=== PATIENT | female | born 1945 | race Caucasian/White ===

== ENCOUNTER 2021-04-28 17:50 | Emergency (ER) | payer BC ==
[2021-04-28 18:14] VITALS: BP 136/62; PULSE 76; TEMP 98; BMI 23.3
== END 2021-04-28 19:53 | disposition home or self-care (01) ==
LOC: JERFT 17:50
DX: S71.152A Open bite, left thigh, initial encounter (principal); W54.0XXA Bitten by dog, initial encounter
CPT/HCPCS: 99283-25

== ENCOUNTER 2021-05-22 04:41 | Day surgery (SDC) | payer BC ==
[2021-05-20 16:46] VITALS: BMI 23.6
[~2021-05-22 04:41] MED LIST: ACETAMINOPHEN 325 MG TABLET (FP) PO PRN; CYCLOPENTOLATE HCL 1% OPHTH SOLN 2 ML BOTTLE OP SCH; KETOROLAC TROMETHAMINE 0.5% EYE DROP 1 DROP DROPS OP SCH; OFLOXACIN 0.3% OPHTHALMIC SOLUTION 5 ML BOTTLE OP SCH; PHENYLEPHRINE 2.5% OPHTH SOLN 15 ML BOTTLE OP SCH; TROPICAMIDE 1% OPHTH SOLN 15 ML BOTTLE OP SCH
[2021-05-22] MEDS ORDERED: OFLOXACIN 0.3% OPHTHALMIC SOLUTION 5 ML BOTTLE ONE (06:08)
[2021-05-22] MEDS ORDERED: CYCLOPENTOLATE HCL 1% OPHTH SOLN 2 ML BOTTLE ONE (06:09)
[2021-05-22] MEDS ORDERED: TROPICAMIDE 1% OPHTH SOLN 15 ML BOTTLE ONE (06:09)
[2021-05-22] MEDS ORDERED: KETOROLAC TROMETHAMINE 0.5% EYE DROP 1 DROP DROPS ONE (06:09)
[2021-05-22] MEDS ORDERED: PHENYLEPHRINE 2.5% OPTHALMIC DROP BOTTLE ONE (06:09)
[2021-05-22] MEDS ORDERED: KETOROLAC TROMETHAMINE 0.5% EYE DROP 1 DROP DROPS OD ONE ×3 (06:15→07:05)
[2021-05-22] MEDS ORDERED: OFLOXACIN 0.3% OPHTHALMIC SOLUTION 5 ML BOTTLE OD ONE ×3 (06:15→07:05)
[2021-05-22] MEDS ORDERED: PHENYLEPHRINE 2.5% OPTHALMIC DROP BOTTLE OD ONE (06:15)
[2021-05-22] MEDS ORDERED: CYCLOPENTOLATE HCL 1% OPHTH SOLN 2 ML BOTTLE OD ONE ×3 (06:15→07:05)
[2021-05-22] MEDS ORDERED: TROPICAMIDE 1% OPHTH SOLN 15 ML BOTTLE OD ONE ×3 (06:15→07:05)
[2021-05-22] MEDS ORDERED: PHENYLEPHRINE 2.5% OPHTH SOLN 15 ML BOTTLE OD ONE ×2 (07:00→07:05)
[2021-05-22] MEDS ORDERED: MIDAZOLAM HCL 2 MG/2 ML SINGLE DOSE VIAL ONE (07:34)
[2021-05-22] MEDS ORDERED: SUCCINYLCHOLINE CHLORIDE 200 MG/10 ML SYRINGE ONE (07:34)
[2021-05-22] MEDS ORDERED: PROPOFOL 20 ML ONE ×2 (07:35)
[2021-05-22] MEDS ORDERED: EPINEPHrine/PF 1 MG/1 ML (1:1,000) AMPULE ONE (07:44)
[2021-05-22] MEDS ORDERED: LIDOCAINE HCL/PF 1% SDV 5ML VIAL ONE (07:44)
[2021-05-22] MEDS ORDERED: VANCOMYCIN 500 MG VIAL (RESTRICTED TO ID ONLY) ONE (07:44)
[2021-05-22] MEDS ORDERED: TETRACAINE 0.5% OPHTH SOLN 2 ML BOTTLE ONE (07:44)
[2021-05-22] MEDS ORDERED: POVIDONE-IODINE 5% OPHTHALMIC PREP 30 ML SOLUTION ONE (07:45)
[2021-05-22] MEDS ORDERED: WATER FOR INJ,STERILE 10 ML ONE (07:45)
[2021-05-22] MEDS ORDERED: TETRACAINE 0.5% OPHTH SOLN 2 ML BOTTLE TP ONE (08:22)
[2021-05-22] MEDS ORDERED: POVIDONE-IODINE 5% OPHTHALMIC PREP 30 ML SOLUTION OD ONE (08:23)
[2021-05-22] MEDS ORDERED: BSS (NA/CA/MG/K) BALANCED SALT SOLUTION OPHTH SOLN 15 ML BOTTLE OD ONE (08:32)
[2021-05-22] MEDS ORDERED: LIDOCAINE HCL 1% PRESERVATIVE FREE - 30ML VIAL IO ONE (08:33)
[2021-05-22] MEDS ORDERED: CHONDROITIN SU A/HYALUR SOD 1 KIT IO ONE (08:33)
[2021-05-22] MEDS ORDERED: EPINEPHrine/PF 1 MG/1 ML (1:1,000) AMPULE SQ ONE (08:39)
[2021-05-22 13:44] VITALS: BP 118/64; PULSE 70; TEMP 98.7
== END 2021-05-22 10:50 | disposition home or self-care (01) ==
LOC: JASU-SURG 04:41
PROVIDERS: ATTEND Ophthalmology
PROC: 08RK3JZ Replacement of Left Lens with Synthetic Substitute, Percutaneous Approach (ICD-10-PCS; principal; 2021-05-22 08:00)
DX: H26.9 Unspecified cataract (principal)

== ENCOUNTER 2022-02-10 04:32 | Day surgery (SDC) | payer BC ==
[2022-02-05 09:43] VITALS: BMI 23.1
[2022-02-10 08:43] VITALS: TEMP 97.9
[2022-02-10] MEDS ORDERED: ceFAZolin SODIUM 1 GM VIAL ONE (08:48)
[2022-02-10] MEDS ORDERED: CEFAZOLIN 1 GM in DEXTROSE 5%-WATER - 50 ML IVPB ONE (09:00)
[2022-02-10 10:06] VITALS: BP 139/54; PULSE 52
== END 2022-02-10 10:23 | disposition home or self-care (01) ==
LOC: JASU-ENDO 04:32
PROVIDERS: ATTEND Internal Medicine Gastroenterology
PROC: 0DJD8ZZ Inspection of Lower Intestinal Tract, Via Natural or Artificial Opening Endoscopic (ICD-10-PCS; principal; 2022-02-10 08:00)
DX: Z12.11 Encounter for screening for malignant neoplasm of colon (principal); K57.30 Diverticulosis of large intestine without perforation or abscess without bleeding; K59.89 Other specified functional intestinal disorders; K56.609 Unspecified intestinal obstruction, unspecified as to partial versus complete obstruction; Z80.0 Family history of malignant neoplasm of digestive organs

== ENCOUNTER 2022-09-18 13:45 | Emergency (ER) | payer BC, OTHER ==
[2022-09-18 13:56] VITALS: TEMP 98.4; BMI 22.9
[2022-09-18] MEDS ORDERED: LIDOCAINE 5% TOPICAL PATCH TP ONE (14:48)
[2022-09-18] MEDS ORDERED: LIDOCAINE 5% TOPICAL PATCH ONE (14:55)
[2022-09-18] MEDS ORDERED: ACETAMINOPHEN 325 MG TABLET (FP) PO ONE (14:58)
[2022-09-18] MEDS ORDERED: ACETAMINOPHEN 325 MG TABLET (FP) ONE (16:00)
[2022-09-18 16:23] VITALS: BP 159/68; PULSE 66; RESP 18
[2022-09-18] MEDS ORDERED: LIDOCAINE PATCH REMOVAL MC ONE (22:00)
== END 2022-09-18 16:26 | disposition home or self-care (01) ==
LOC: JER 13:45
DX: M54.2 Cervicalgia (principal); M25.552 Pain in left hip; W19.XXXA Unspecified fall, initial encounter
CPT/HCPCS: 70450-TC; 71045-TC-FY; 72125-TC; 72170-TC-FY; 99284-25

== ENCOUNTER 2024-01-20 04:34 | Day surgery (SDC) | payer BC ==
[2024-01-15 14:07] VITALS: BMI 22.2
[~2024-01-20 04:34] MED LIST changes: -CYCLOPENTOLATE HCL 1% OPHTH SOLN 2 ML BOTTLE OP SCH; -KETOROLAC TROMETHAMINE 0.5% EYE DROP 1 DROP DROPS OP SCH; -OFLOXACIN 0.3% OPHTHALMIC SOLUTION 5 ML BOTTLE OP SCH; -PHENYLEPHRINE 2.5% OPHTH SOLN 15 ML BOTTLE OP SCH; -TROPICAMIDE 1% OPHTH SOLN 15 ML BOTTLE OP SCH
[2024-01-20] MEDS ORDERED: PHENYLEPHRINE 2.5% OPTHALMIC DROP 2ML BOTTLE ONE (07:03)
[2024-01-20] MEDS ORDERED: CYCLOPENTOLATE HCL 1% OPHTH SOLN 2 ML BOTTLE ONE (07:03)
[2024-01-20] MEDS ORDERED: OFLOXACIN 0.3% OPHTHALMIC SOLUTION 5 ML BOTTLE ONE (07:03)
[2024-01-20] MEDS ORDERED: TROPICAMIDE 1% OPHTH SOLN 15 ML BOTTLE ONE (07:03)
[2024-01-20] MEDS ORDERED: KETOROLAC TROMETHAMINE 0.5% EYE DROP 1 DROP DROPS ONE (07:03)
[2024-01-20] MEDS: CYCLOPENTOLATE HCL 1% OPHTH SOLN 2 ML BOTTLE OP SCH (07:28)
[2024-01-20] MEDS ORDERED: PHENYLEPHRINE 2.5% OPHTH SOLN 15 ML BOTTLE OP SCH ×3 (07:30→13:00)
[2024-01-20] MEDS ORDERED: OFLOXACIN 0.3% OPHTHALMIC SOLUTION 5 ML BOTTLE OP SCH ×2 (07:30→13:00)
[2024-01-20] MEDS ORDERED: KETOROLAC TROMETHAMINE 0.5% EYE DROP 1 DROP DROPS OP SCH (07:30)
[2024-01-20] MEDS ORDERED: CYCLOPENTOLATE HCL 1% OPHTH SOLN 2 ML BOTTLE OP SCH (07:30)
[2024-01-20] MEDS: KETOROLAC TROMETHAMINE 0.5% EYE DROP 1 DROP DROPS OP SCH (07:30)
[2024-01-20] MEDS ORDERED: TROPICAMIDE 1% OPHTH SOLN 15 ML BOTTLE OP SCH ×2 (07:30→13:00)
[2024-01-20] MEDS ORDERED: POVIDONE-IODINE 5% OPHTHALMIC PREP 30 ML SOLUTION ONE (07:49)
[2024-01-20] MEDS ORDERED: LIDOCAINE HCL/PF 1% SDV 5ML VIAL ONE (07:49)
[2024-01-20] MEDS ORDERED: EPINEPHrine/PF 1 MG/1 ML (1:1,000) AMPULE ONE (07:49)
[2024-01-20] MEDS ORDERED: TRYPAN BLUE 0.5 ML DISP.SYRIN ONE (07:50)
[2024-01-20] MEDS ORDERED: TETRACAINE 0.5% OPHTH SOLN 2 ML BOTTLE ONE (08:06)
[2024-01-20] MEDS ORDERED: CHONDROITIN SU A/HYALUR SOD 1 KIT ONE (08:08)
[2024-01-20] MEDS ORDERED: ONDANSETRON 4 MG/2 ML VIAL ONE (08:38)
[2024-01-20] MEDS ORDERED: MIDAZOLAM HCL 2 MG/2 ML SINGLE DOSE VIAL ONE (08:39)
[2024-01-20] MEDS: TETRACAINE 0.5% OPHTH SOLN 2 ML BOTTLE OS ONE ×2 (08:58)
[2024-01-20] MEDS: POVIDONE-IODINE 5% OPHTHALMIC PREP 30 ML SOLUTION OS ONE ×2 (09:02)
[2024-01-20] MEDS: LIDOCAINE HCL 1% PRESERVATIVE FREE - 30ML VIAL IO ONE ×2 (09:06→09:11)
[2024-01-20] MEDS: BSS (NA/CA/MG/K) BALANCED SALT SOLUTION OPHTH SOLN 15 ML BOTTLE OS ONE (09:09)
[2024-01-20] MEDS: CHONDROITIN SU A/HYALUR SOD 1 KIT IO ONE ×2 (09:12)
[2024-01-20] MEDS: EPINEPHrine/PF 1 MG/1 ML (1:1,000) AMPULE IO ONE ×2 (09:19)
[2024-01-20 09:46] VITALS: BP 114/56; RESP 20; TEMP 97.3
[2024-01-20 11:20] VITALS: PULSE 57
== END 2024-01-20 10:45 | disposition home or self-care (01) ==
LOC: JASU-SURG 04:34
PROVIDERS: ATTEND Ophthalmology
PROC: 08RK3JZ Replacement of Left Lens with Synthetic Substitute, Percutaneous Approach (ICD-10-PCS; principal; 2024-01-20 09:00)
DX: H26.9 Unspecified cataract (principal)
CPT/HCPCS: V2632

== ENCOUNTER 2024-03-03 17:26 | Inpatient (IN) | payer BC ==
[2024-03-03 18:40] LABS: BASO % 0.5 % (0-2.0); EOS % 1.1 % (0-4.5); LYMPH % 15.9 % (8-40); MCH 29.3 pg (25.7-33.7); MCHC 33.5 g/dl (32.0-36.0); MEAN CELL VOLUME 87.3 fl (80-96); MONO % 7.8 % (3.8-10.2); NEUT % 74.7 % (42.8-82.8); PLATELET COUNT 246 10^3/uL (134-434); RBC 4.12 M/mm3 (3.60-5.2); RDW 14.7 % (11.6-15.6); WHITE BLOOD COUNT 11.7 K/mm3 (4.0-10.0)
[2024-03-03] MEDS ORDERED: morphine SULFATE 4 MG/ML VIAL ONE (18:46)
[2024-03-03] MEDS ORDERED: ONDANSETRON 4 MG/2 ML VIAL ONE (18:46)
[2024-03-03 18:47] LABS: INR 2.54 (0.83-1.09); PROTHROMBIN TIME (PATIENT) 27.9 SEC (9.7-13.0)
[2024-03-03 18:49] LABS: ACTIVATED PTT 40.4 SECONDS (25.2-36.5)
[2024-03-03] MEDS: morphine CARPU-JECT 4 MG/1 ML DISP.SYRIN IVPUSH ONE (18:53)
[2024-03-03] MEDS: ONDANSETRON 4 MG/2 ML VIAL IVPUSH ONE (18:53)
[2024-03-03 18:55] LABS: POTASSIUM 3.6 mmol/L (3.5-5.1)
[2024-03-03 18:56] LABS: CALCIUM 8.8 mg/dL (8.5-10.1)
[2024-03-03 18:57] LABS: ALBUMIN 3.3 g/dl (3.4-5.0); MAGNESIUM 1.9 mg/dL (1.8-2.4)
[2024-03-03 19:00] LABS: CREATININE 0.6 mg/dL (0.55-1.3)
[2024-03-03 19:02] LABS: BILIRUBIN,TOTAL 0.4 mg/dL (0.2-1)
[2024-03-03] MEDS: LACTATED RINGERS SOLUTION 1,000 ML/1,000 ML INFUS.BAG IV SCH (20:24)
[2024-03-03] MEDS ORDERED: MORPHINE SULFATE 2 MG/ML SYRINGE ONE (21:15)
[2024-03-03] MEDS: morphine CARPU-JECT 2 MG/1 ML DISP.SYRIN IVPUSH ONE (21:18)
[2024-03-04] MEDS: morphine SULFATE 4 MG/ML VIAL IVPUSH PRN (01:53)
[2024-03-04 08:32] LABS: BASO % 0.1 % (0-2.0); HEMATOCRIT 33.3 % (32.4-45.2); HEMOGLOBIN 11.2 GM/dL (10.7-15.3); MCH 29.2 pg (25.7-33.7); MCHC 33.7 g/dl (32.0-36.0); MEAN CELL VOLUME 86.6 fl (80-96); MEAN PLT VOLUME 8.4 fl (7.5-11.1); MONO % 13.5 % (3.8-10.2); NEUT % 76.4 % (42.8-82.8); PLATELET COUNT 234 10^3/uL (134-434); RBC 3.84 M/mm3 (3.60-5.2); RDW 15.2 % (11.6-15.6); WHITE BLOOD COUNT 11.7 K/mm3 (4.0-10.0)
[2024-03-04 08:49] LABS: POTASSIUM 4.3 mmol/L (3.5-5.1)
[2024-03-04 08:51] LABS: ALBUMIN 3.1 g/dl (3.4-5.0); BLOOD UREA NITROGEN 28.8 mg/dL (7-18); CALCIUM 8.8 mg/dL (8.5-10.1); MAGNESIUM 1.9 mg/dL (1.8-2.4)
[2024-03-04 08:54] LABS: CREATININE 0.6 mg/dL (0.55-1.3); PHOSPHOROUS 3.6 mg/dL (2.5-4.9)
[2024-03-04 08:56] LABS: BILIRUBIN,TOTAL 0.6 mg/dL (0.2-1); TOT PROT 7.4 g/dl (6.4-8.2)
[2024-03-04 09:00] LABS: N-TERMINAL BNP 6380.5 pg/ml (5-450)
[2024-03-04] MEDS: LISINOPRIL 5 MG TABLET PO SCH (09:49)
[2024-03-04 11:50] LABS: INR 2.69 (0.83-1.09); PROTHROMBIN TIME (PATIENT) 30.1 SEC (9.7-13.0)
[2024-03-04 11:53] LABS: ACTIVATED PTT 43.4 SECONDS (25.2-36.5)
[2024-03-04] MEDS: metoPROLOL SUCCINATE 25 MG TAB.SR.24H (FP) PO SCH (12:18)
[2024-03-04] MEDS ORDERED: PROPOFOL 20 ML ONE (12:42)
[2024-03-04] MEDS ORDERED: MIDAZOLAM HCL 2 MG/2 ML SINGLE DOSE VIAL ONE (12:43)
[2024-03-04] MEDS ORDERED: LIDOCAINE HCL/PF 2% SDV 5ML VIAL ONE (13:01)
[2024-03-04] MEDS ORDERED: ceFAZolin SODIUM 1 GM VIAL ONE (13:07)
[2024-03-04] MEDS ORDERED: ONDANSETRON 4 MG/2 ML VIAL ONE (13:09)
[2024-03-04] MEDS ORDERED: DEXAMETHASONE SOD PHOSPHATE 4 MG/1 ML VIAL ONE (13:09)
[2024-03-04] MEDS ORDERED: SEVOFLURANE 250 ML BTL ONE (13:26)
[2024-03-04 14:07] LABS: EPI CELLS 7 /uL (0-25.1); HYALINE CASTS 0 /uL (0-3.1); PH,URINE 5.5 (5.0-8.0); URINE APPEARANCE TURBID; URINE BILIRUBIN 1+ (NEGATIVE); URINE COLOR DK YELLOW; URINE GLUCOSE (UA) NEGATIVE (NEGATIVE); URINE KETONE NEGATIVE (NEGATIVE); URINE LEUK ESTERASE TRACE (NEGATIVE); URINE NITRITE POSITIVE (NEGATIVE); URINE PROTEIN 1+ (NEGATIVE); URINE RBC 18 /uL (0-23.9); URINE WBC 64 /uL (0-25.8)
[2024-03-04] MEDS ORDERED: oxyCODONE HCL 5 MG TABLET PO PRN ×2 (14:07→14:08)
[2024-03-04] MEDS ORDERED: ACETAMINOPHEN INJECTION 100 ML IVPB ONE (14:17)
[2024-03-04] MEDS: ACETAMINOPHEN 1000 MG/100 ML BAG IVPB PRN (14:29)
[2024-03-04] MEDS ORDERED: morphine SULFATE 4 MG/ML VIAL IVPUSH PRN (14:30)
[2024-03-04] MEDS ORDERED: ACETAMINOPHEN 1000 MG/100 ML BAG IVPB PRN (14:30)
[2024-03-04] MEDS: LACTATED RINGERS SOLUTION 1,000 ML IV SCH (16:28)
[2024-03-04] MEDS: CEFAZOLIN 1 GM in DEXTROSE 5%-WATER - 50 ML IVPB SCH (17:04)
[2024-03-04 17:12] LABS: URINE BACTERIA 19.9 /uL (0-1359)
[2024-03-04 17:14] LABS: URINE CRYSTALS PRESENT /hpf
[2024-03-04] MEDS: DOCUSATE SODIUM 100 MG CAPSULE (FP) PO SCH (21:37)
[2024-03-04] MEDS: oxyCODONE HCL 5 MG TABLET PO PRN (21:37)
[2024-03-05 07:53] LABS: BASO % 0.1 % (0-2.0); HEMATOCRIT 30.1 % (32.4-45.2); HEMOGLOBIN 10.1 GM/dL (10.7-15.3); LYMPH % 11.5 % (8-40); MCH 29.3 pg (25.7-33.7); MCHC 33.5 g/dl (32.0-36.0); MEAN CELL VOLUME 87.2 fl (80-96); MEAN PLT VOLUME 8.1 fl (7.5-11.1); MONO % 17.5 % (3.8-10.2); NEUT % 70.9 % (42.8-82.8); PLATELET COUNT 197 10^3/uL (134-434); RBC 3.45 M/mm3 (3.60-5.2); WHITE BLOOD COUNT 12.3 K/mm3 (4.0-10.0)
[2024-03-05 07:58] LABS: POTASSIUM 4.1 mmol/L (3.5-5.1)
[2024-03-05 07:59] LABS: CALCIUM 8.3 mg/dL (8.5-10.1)
[2024-03-05 08:00] LABS: BLOOD UREA NITROGEN 27.9 mg/dL (7-18)
[2024-03-05 08:04] LABS: CREATININE 0.5 mg/dL (0.55-1.3)
[2024-03-05] MEDS: CHOLECALCIFEROL (VIT D3) 1,000 UNIT (25 MCG) TABLET PO SCH (10:06)
[2024-03-05] MEDS: LISINOPRIL 5 MG TABLET PO SCH (10:06)
[2024-03-05] MEDS: metoPROLOL SUCCINATE 25 MG TAB.SR.24H (FP) PO SCH (10:07)
[2024-03-05 16:20] LABS: INR 2.73 (0.83-1.09)
[2024-03-05] MEDS: WARFARIN NA 7.5 MG TABLET PO SCH (17:39)
[2024-03-06] MEDS: ACETAMINOPHEN 325 MG TABLET (FP) PO ONE (05:54)
[2024-03-06 08:56] LABS: BASO % 0.3 % (0-2.0); HEMATOCRIT 26.8 % (32.4-45.2); HEMOGLOBIN 9.3 GM/dL (10.7-15.3); LYMPH % 13.2 % (8-40); MCH 29.7 pg (25.7-33.7); MCHC 34.9 g/dl (32.0-36.0); MEAN CELL VOLUME 85.3 fl (80-96); MEAN PLT VOLUME 8.3 fl (7.5-11.1); MONO % 17.6 % (3.8-10.2); NEUT % 68.9 % (42.8-82.8); PLATELET COUNT 170 10^3/uL (134-434); RBC 3.15 M/mm3 (3.60-5.2); RDW 15.1 % (11.6-15.6); WHITE BLOOD COUNT 12.2 K/mm3 (4.0-10.0)
[2024-03-06 09:02] LABS: INR 2.19 (0.83-1.09); PROTHROMBIN TIME (PATIENT) 24.6 SEC (9.7-13.0)
[2024-03-06 09:12] LABS: POTASSIUM 3.6 mmol/L (3.5-5.1)
[2024-03-06 09:16] LABS: ALBUMIN 2.7 g/dl (3.4-5.0); CALCIUM 8.2 mg/dL (8.5-10.1)
[2024-03-06 09:19] LABS: CREATININE 0.5 mg/dL (0.55-1.3)
[2024-03-06 09:21] LABS: BILIRUBIN,TOTAL 1.2 mg/dL (0.2-1); TOT PROT 6.5 g/dl (6.4-8.2)
[2024-03-06] MEDS: SODIUM CHLORIDE 0.9% 250 ML INFUS.BAG IV ONE (13:03)
[2024-03-06] MEDS ORDERED: SODIUM CHLORIDE 250 ML IV STA ×2 (13:11→13:26)
[2024-03-06] MEDS ORDERED: METOPROLOL TARTRATE 5 MG/5 ML VIAL IVPB ONE (13:30)
[2024-03-06] MEDS: SODIUM CHLORIDE 1,000 ML IV SCH (15:42)
[2024-03-06] MEDS ORDERED: AMIODARONE HCL INJECTION 150 MG in DEXTROSE 5%-WATER - 100 ML IVPB ONE (17:42)
[2024-03-06] MEDS: CEFTRIAXONE 1 GM in DEXTROSE 5%-WATER - 50 ML IVPB SCH (17:53)
[2024-03-06] MEDS: WARFARIN NA 2 MG TABLET PO ONE (17:53)
[2024-03-06] MEDS ORDERED: AMIODARONE HCL 150 MG/3 ML VIAL IVPB ONE (18:00)
[2024-03-06 18:02] LABS: BASO % 0.3 % (0-2.0); HEMATOCRIT 26.5 % (32.4-45.2); LYMPH % 11.7 % (8-40); MCH 29.2 pg (25.7-33.7); MCHC 33.9 g/dl (32.0-36.0); MEAN PLT VOLUME 7.9 fl (7.5-11.1); PLATELET COUNT 189 10^3/uL (134-434); RBC 3.08 M/mm3 (3.60-5.2); WHITE BLOOD COUNT 12.7 K/mm3 (4.0-10.0)
[2024-03-06 18:29] LABS: POTASSIUM 3.9 mmol/L (3.5-5.1)
[2024-03-06 18:31] LABS: CALCIUM 7.6 mg/dL (8.5-10.1)
[2024-03-06 18:32] LABS: ALBUMIN 2.5 g/dl (3.4-5.0); MAGNESIUM 1.9 mg/dL (1.8-2.4)
[2024-03-06 18:35] LABS: CREATININE 0.5 mg/dL (0.55-1.3); PHOSPHOROUS 2.1 mg/dL (2.5-4.9)
[2024-03-06 18:37] LABS: BILIRUBIN,TOTAL 0.9 mg/dL (0.2-1); TOT PROT 6.1 g/dl (6.4-8.2)
[2024-03-06] MEDS: MAGNESIUM 1GM/D5W 100ML - 100 ML IVPB IVPB ONE (18:39)
[2024-03-06] MEDS: AMIODARONE IN DEXTROSE 150 MG/100 ML PREMIX BAG IVPB ONE (19:22)
[2024-03-06] MEDS: AMIODARONE IN DEXTROSE,ISO-OSM 360 MG/200 ML BAG IV SCH (20:01)
[2024-03-06] MEDS: MAGNESIUM SULF 50% (8.12 MEQ/2 ML-1 GM VIAL) IVPB ONE (20:51)
[2024-03-06] MEDS: ASPIRIN 81 MG CHEWABLE TABLETS PO ONE (20:52)
[2024-03-06] MEDS: CALCIUM GLUC IN NACL, ISO-OSM 1 GM/50 ML BAG IVPB ONE (20:53)
[2024-03-06] MEDS: NAPH,MB-DB/K PH,MBDB POWDER PACKET PO SCH (20:53)
[2024-03-07] MEDS: AMIODARONE IN DEXTROSE,ISO-OSM 360 MG/200 ML BAG IV SCH (02:13)
[2024-03-07 07:16] LABS: INR 2.53 (0.83-1.09); PROTHROMBIN TIME (PATIENT) 28.3 SEC (9.7-13.0)
[2024-03-07] MEDS: oxyCODONE HCL 5 MG TABLET PO PRN (09:34)
[2024-03-07 13:59] LABS: EPI CELLS 25 /uL (0-25.1); HYALINE CASTS 3 /uL (0-3.1); PH,URINE 5.5 (5.0-8.0); URINE APPEARANCE CLEAR; URINE BACTERIA 12 /uL (0-1359); URINE BILIRUBIN 1+ (NEGATIVE); URINE COLOR DK YELLOW; URINE GLUCOSE (UA) NEGATIVE (NEGATIVE); URINE KETONE NEGATIVE (NEGATIVE); URINE LEUK ESTERASE TRACE (NEGATIVE); URINE NITRITE NEGATIVE (NEGATIVE); URINE PROTEIN 2+ (NEGATIVE); URINE RBC 216 /uL (0-23.9); URINE WBC 82 /uL (0-25.8)
[2024-03-07] MEDS: ACETAMINOPHEN 325 MG TABLET (FP) PO PRN (16:32)
[2024-03-08] MEDS: MELATONIN 5 MG TABLETS PO ONE (01:02)
[2024-03-08] MEDS: oxyCODONE HCL 5 MG TABLET PO PRN (01:11)
[2024-03-08 06:54] LABS: INR 3.48 (0.83-1.09); PROTHROMBIN TIME (PATIENT) 37.9 SEC (9.7-13.0)
[2024-03-08 10:46] LABS: BASO % 0.2 % (0-2.0); EOS % 0.2 % (0-4.5); HEMATOCRIT 26.4 % (32.4-45.2); HEMOGLOBIN 9.1 GM/dL (10.7-15.3); LYMPH % 10.4 % (8-40); MCH 29.5 pg (25.7-33.7); MCHC 34.5 g/dl (32.0-36.0); MEAN CELL VOLUME 85.8 fl (80-96); MEAN PLT VOLUME 7.9 fl (7.5-11.1); MONO % 12.7 % (3.8-10.2); NEUT % 76.5 % (42.8-82.8); PLATELET COUNT 238 10^3/uL (134-434); RBC 3.08 M/mm3 (3.60-5.2); WHITE BLOOD COUNT 9.9 K/mm3 (4.0-10.0)
[2024-03-08 11:09] LABS: POTASSIUM 3.6 mmol/L (3.5-5.1)
[2024-03-08 11:11] LABS: ALBUMIN 2.5 g/dl (3.4-5.0); CALCIUM 8.1 mg/dL (8.5-10.1)
[2024-03-08 11:12] LABS: BLOOD UREA NITROGEN 22.4 mg/dL (7-18)
[2024-03-08 11:16] LABS: BILIRUBIN,TOTAL 1.2 mg/dL (0.2-1); TOT PROT 6.2 g/dl (6.4-8.2)
[2024-03-08 11:21] LABS: CREATININE 0.5 mg/dL (0.55-1.3)
[2024-03-08] MEDS: METOPROLOL TARTRATE 25 MG TABLET (FP) PO SCH (13:41)
[2024-03-08] MEDS: AMIODARONE HCL 200 MG TABLET PO SCH (13:44)
[2024-03-08 17:45] LABS: MAGNESIUM 2.2 mg/dL (1.8-2.4)
[2024-03-08] MEDS: FUROSEMIDE 40 MG/4 ML INJECTABLE VIAL IVPUSH ONE (17:45)
[2024-03-08] MEDS: TAMSULOSIN HCL 0.4 MG CAP PO ONE (17:46)
[2024-03-08] MEDS: ATORVASTATIN CA 80 MG TABLET (FP) PO ONE (17:46)
[2024-03-08] MEDS: WARFARIN NA 7.5 MG TABLET PO SCH (17:47)
[2024-03-08] MEDS: EMPAGLIFLOZIN (JARDIANCE) 10 MG TABLET PO SCH (19:53)
[2024-03-08] MEDS: ALPRAZolam 0.25 MG TABLET PO PRN (21:50)
[2024-03-08] MEDS: ZOLPIDEM TARTRATE 5 MG TABLET PO PRN (21:51)
[2024-03-08] MEDS: MELATONIN 5 MG TABLETS PO SCH (21:52)
[2024-03-09 06:04] VITALS: RESP 20
[2024-03-09] MEDS: EMPAGLIFLOZIN (JARDIANCE) 10 MG TABLET PO SCH (06:52)
[2024-03-09 08:07] LABS: INR 3.83 (0.83-1.09); PROTHROMBIN TIME (PATIENT) 41.6 SEC (9.7-13.0)
[2024-03-09] MEDS: TAMSULOSIN HCL 0.4 MG CAP PO SCH (10:51)
[2024-03-09] MEDS: FUROSEMIDE 40 MG/4 ML INJECTABLE VIAL IVPUSH ONE (13:01)
[2024-03-09 13:22] VITALS: BMI 24.1
[2024-03-09] MEDS: WARFARIN NA 3 MG TABLET PO SCH (18:28)
[2024-03-09] MEDS: ATORVASTATIN CA 80 MG TABLET (FP) PO SCH (21:29)
[2024-03-10 07:55] LABS: PROTHROMBIN TIME (PATIENT) 48.3 SEC (9.7-13.0)
[2024-03-10 08:02] LABS: BASO % 0.5 % (0-2.0); EOS % 2.1 % (0-4.5); HEMATOCRIT 23.7 % (32.4-45.2); HEMOGLOBIN 8.4 GM/dL (10.7-15.3); LYMPH % 15.5 % (8-40); MCH 30.3 pg (25.7-33.7); MCHC 35.3 g/dl (32.0-36.0); MEAN PLT VOLUME 7.5 fl (7.5-11.1); MONO % 13.8 % (3.8-10.2); NEUT % 68.1 % (42.8-82.8); PLATELET COUNT 260 10^3/uL (134-434); RBC 2.76 M/mm3 (3.60-5.2); RDW 14.8 % (11.6-15.6); WHITE BLOOD COUNT 7.7 K/mm3 (4.0-10.0)
[2024-03-10 08:12] LABS: POTASSIUM 3.4 mmol/L (3.5-5.1)
[2024-03-10 08:14] LABS: ALBUMIN 2.2 g/dl (3.4-5.0); CALCIUM 7.8 mg/dL (8.5-10.1)
[2024-03-10 08:15] LABS: BLOOD UREA NITROGEN 25.5 mg/dL (7-18)
[2024-03-10 08:18] LABS: CREATININE 0.4 mg/dL (0.55-1.3)
[2024-03-10 08:19] LABS: BILIRUBIN,TOTAL 2.1 mg/dL (0.2-1); TOT PROT 5.8 g/dl (6.4-8.2)
[2024-03-10 08:53] LABS: INR 4.46 (0.83-1.09)
[2024-03-10 10:07] VITALS: BP 101/51; PULSE 89; TEMP 98.1
[2024-03-10] MEDS: POTASSIUM CHLORIDE ORAL LIQUID 20 MEQ/15 ML PO ONE (10:25)
== END 2024-03-10 15:14 | DRG 480 ==
LOC: JER 17:26 → JERBED 18:57 → J8W 03-04 01:36 → J4W 03-06 15:16
PROVIDERS: ADMIT Internal Medicine; ATTEND Internal Medicine
PROC: 0QS704Z Reposition Left Upper Femur with Internal Fixation Device, Open Approach (ICD-10-PCS; principal; 2024-03-04 16:00)
DX: S72.142A Displaced intertrochanteric fracture of left femur, initial encounter for closed fracture (principal); I21.4 Non-ST elevation (NSTEMI) myocardial infarction; I10 Essential (primary) hypertension; M25.552 Pain in left hip; Z95.2 Presence of prosthetic heart valve; D72.829 Elevated white blood cell count, unspecified; I48.91 Unspecified atrial fibrillation; I95.89 Other hypotension; W19.XXXA Unspecified fall, initial encounter; Y92.89 Other specified places as the place of occurrence of the external cause; Y99.9 Unspecified external cause status; G89.18 Other acute postprocedural pain
CPT/HCPCS: 0241U-QW; 36415; 70450-TC; 71045-TC-FY; 71250-TC; 72125-TC; 72170-TC-FY; 73521-TC-FY; 73552-TC-LT-FY; 76000-TC-FY; 80048; 80053; 80061; 81003; 82962; 83735; 83880; 84100; 84439; 84443; 84481; 84484; 85025; 85610; 85730; 86850; 86870; 86880; 86900; 86901; 86902; 86922; 87086; 93005; 93010; 93306-TC; 94760; 97116-GP; 97162-GP; 99285-25; C1713; J0131; J0282